=== PATIENT | male | born 1960 | race Caucasian/White ===

== ENCOUNTER 2017-09-11 09:34 | Emergency (ER) | payer OTHER, BC ==
[2017-09-11] MEDS: KETOROLAC 60 MG/2 ML VIAL (J1885) IM (10:30)
== END 2017-09-11 11:26 | disposition home or self-care (01) ==
LOC: M ED 09:34
DX: S43.402A Unspecified sprain of left shoulder joint, initial encounter (principal); X50.9XXA Other and unspecified overexertion or strenuous movements or postures, initial encounter; Y92.9 Unspecified place or not applicable; Y93.89 Activity, other specified; Y99.0 Civilian activity done for income or pay; M25.712 Osteophyte, left shoulder; Z79.82 Long term (current) use of aspirin; Z79.899 Other long term (current) drug therapy
CPT/HCPCS: J1885

== ENCOUNTER 2017-09-20 06:09 | Emergency (ER) | payer BC, OTHER ==
[2017-09-20 08:16] LABS: HEMATOCRIT 43.2 % (42.0-52.0); HEMOGLOBIN 15.1 g/dl (14.0-18.0); MEAN CORPUSCULAR HEMOGLOBIN 30.3 pg (27.0-33.0); MEAN CORPUSCULAR VOLUME 86.6 fl (80.0-96.0); PLATELET COUNT, AUTOMATED 217 10^3/uL (150-450); RED BLOOD COUNT 4.99 10^6/uL (4.30-6.10); RED CELL DISTRIBUTION WIDTH 12.8 % (11.5-14.5); WHITE BLOOD COUNT 7.4 10^3/uL (4.0-10.0)
[2017-09-20 08:38] LABS: INFLUENZA A AMPLIFICATION NEGATIVE (NEGATIVE); INFLUENZA B AMPLIFICATION POSITIVE (NEGATIVE)
[2017-09-20] MEDS: IBUPROFEN 400 MG TAB PO (08:49)
== END 2017-09-20 08:59 | disposition home or self-care (01) ==
LOC: M ED 06:09
DX: J10.1 Influenza due to other identified influenza virus with other respiratory manifestations (principal); I10 Essential (primary) hypertension; Z79.899 Other long term (current) drug therapy; Z79.82 Long term (current) use of aspirin
CPT/HCPCS: 85027

== ENCOUNTER → 2018-10-04 | Outpatient (REF) | payer BC ==
[~2018-10-04] MED LIST: /PANT40TA PO; /ROPI5TA PO; ALBU17IN INH; ASPI1TAB PO; ASPI81TA85 PO; AUGM875T28 PO; AZEL0.1S; AZEL0.1S3; LOSA100T50 PO; LUNE3TAB PO; LUNE3TAB36 PO; META0.52 PO; OSEL75CA PO; OSEL75CA2 PO; PROT1TAB2 PO; ROPI1TAB PO; VITMTA PO; ZOCO20TA PO
[2018-10-04 22:19] LABS: INFLUENZA A AMPLIFICATION NEGATIVE (NEGATIVE); INFLUENZA B AMPLIFICATION NEGATIVE (NEGATIVE)
== END ==
LOC: M LAB REF 11:26
PROVIDERS: ATTEND Nurse Practitioner Family
DX: J11.1 Influenza due to unidentified influenza virus with other respiratory manifestations (principal)

== ENCOUNTER 2018-10-23 10:54 | Day surgery (SDC) | payer BC ==
[~2018-10-23] VITALS: Ht 172.7 cm; Wt 99.8 kg
[~2018-10-23 10:54] MED LIST changes: +ASTE0.15; +NS 1,000 ML IV ONE; +VENTAER INH
[2018-10-23] MEDS ORDERED: SUCR1SUS PO (11:11)
[2018-10-23] MEDS ORDERED: PROPOFOL 200 MG/20 ML VIAL As Ordered ONE (11:16)
[2018-10-23] MEDS ORDERED: LIDOCAINE 2% INJ 100 MG/5 ML SDV (FOR ANES.) As Ordered ONE (11:17)
--- NOTE | 2018-10-23 12:09 | ROOR ---
Patient Name: Clayton Fernandez Procedure Date: 10/23/2018 11:43 AM Date of : 1960 Age: 58 Room: [facility] Gender: Male Note Status: Finalized Procedure: Upper GI endoscopy Indications: Suspected esophageal reflux Providers: Nestor Buck Jr, MD Referring MD: VERENICE JOHNS JR, MD Requesting Provider: Medicines: Propofol per Anesthesia Complications: No immediate complications. Procedure: Pre-Anesthesia Assessment: - Prior to the procedure, a History and Physical was performed, and patient medications and allergies were reviewed. The patient is competent. The risks and benefits of the procedure and the sedation options and risks were discussed with the patient. All questions were answered and informed consent was obtained. Patient identification and proposed procedure were verified by the physician and the nurse in the pre-procedure area and in the procedure room. Mental Status Examination: alert and oriented. Airway Examination: normal oropharyngeal airway and neck mobility. Respiratory Examination: clear to auscultation. CV Examination: normal. ASA Grade Assessment: II - A patient with mild systemic disease. After reviewing the risks and benefits, the patient was deemed in satisfactory condition to undergo the procedure. The anesthesia plan was to use moderate sedation / analgesia (conscious sedation). Immediately prior to administration of medications, the patient was re-assessed for adequacy to receive sedatives. The heart rate, respiratory rate, oxygen saturations, blood pressure, adequacy of pulmonary ventilation, and response to care were monitored throughout the procedure. The physical status of the patient was re-assessed after the procedure. The Endoscope was introduced through the mouth, and advanced to the second part of duodenum. The upper GI endoscopy was accomplished without difficulty. The patient tolerated the procedure well. Findings: The upper third of the esophagus, middle third of the esophagus and lower third of the esophagus were normal. A small hiatal hernia was present. Two tongues of salmon-colored mucosa were present. Biopsies were taken with a cold forceps for histology. Localized moderate inflammation characterized by congestion (edema), erythema, friability and granularity was found in the prepyloric region of the stomach. Biopsies were taken with a cold forceps for histology. The cardia, gastric fundus, gastric body, gastric antrum and pylorus were normal. The duodenal bulb, first portion of the duodenum and second portion of the duodenum were normal. Impression: - Normal upper third of esophagus, middle third of esophagus and lower third of esophagus. - Small hiatal hernia. 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 Biopsied. - Gastritis. Biopsied. - Normal cardia, gastric fundus, gastric body, antrum and pylorus. - Normal duodenal bulb, first portion of the duodenum and second portion of the duodenum. Recommendation: - Discharge patient to home (ambulatory). - Telephone my office for pathology results in 1 week. Nestor Buck MD Nestor Buck Jr, MD 10/23/2018 12:08:51 PM This report has been signed electronically. Number of Addenda: 0 Note Initiated On: 10/23/2018 11:43 AM Estimated Blood Loss: Estimated blood loss: none.
[2018-10-23 12:25] VITALS: BP 142/73
== END 2018-10-23 12:37 | disposition home or self-care (01) ==
LOC: M OPP 10:54
PROVIDERS: ATTEND Surgery
DX: K22.8 Other specified diseases of esophagus (principal); K44.9 Diaphragmatic hernia without obstruction or gangrene; K29.70 Gastritis, unspecified, without bleeding; G47.30 Sleep apnea, unspecified; Z79.82 Long term (current) use of aspirin; Z79.899 Other long term (current) drug therapy; Z87.891 Personal history of nicotine dependence

== ENCOUNTER → 2019-06-02 | Outpatient (REF) | payer BC ==
[~2019-06-02] MED LIST changes: -/PANT40TA PO; -/ROPI5TA PO; -ASPI1TAB PO; +ASPI81TA26 PO; -NS 1,000 ML IV ONE; +REQU1TAB15 PO; +SUCR1SUS PO
[2019-06-03 14:07] LABS: PSA TOTAL 3.9 ng/mL (0.0-4.0)
== END ==
LOC: M LAB REF 12:55
PROVIDERS: ATTEND Internal Medicine
DX: R97.20 Elevated prostate specific antigen [PSA] (principal)

== ENCOUNTER → 2021-11-17 | Outpatient (CLI) | payer BC ==
[~2021-11-17] MED LIST changes: +LOSA100T45 PO; -LOSA100T50 PO; -ROPI1TAB PO; +ROPI1TAB3 PO; +SUCR1ORA PO; -SUCR1SUS PO
[2021-11-17 12:27] LABS: BASO # 0.1 10^3/uL (0.0-0.2); BASO % 0.4 % (0.0-1.0); EOS # 0.1 10^3/uL (0.0-0.5); EOS % 0.7 % (0.0-3.0); HEMATOCRIT 46.1 % (42.0-52.0); HEMOGLOBIN 15.8 g/dl (13.5-17.5); LYMPH # 1.3 10^3/uL (1.5-5.0); LYMPH % 8.7 % (24.0-44.0); MEAN CORPUSCULAR HEMOGLOBIN 30.4 pg (27.0-33.0); MEAN CORPUSCULAR HGB CONC 34.3 g/dl (32.0-36.5); MEAN CORPUSCULAR VOLUME 88.8 fl (80.0-96.0); MONO # 0.9 10^3/uL (0.0-0.8); MONO % 6.4 % (2.0-8.0); NEUTROPHILS # 12.3 10^3/uL (1.5-8.5); NEUTROPHILS % 83.4 % (36.0-66.0); PLATELET COUNT, AUTOMATED 298 10^3/uL (150-450); RED BLOOD COUNT 5.19 10^6/uL (4.30-6.10); WHITE BLOOD COUNT 14.8 10^3/uL (4.0-10.0)
[2021-11-17 12:55] LABS: ALBUMIN 3.7 GM/DL (3.2-5.2); ALT/SGPT 45 U/L (12-78); BLOOD UREA NITROGEN 15 MG/DL (7-18); CALCIUM LEVEL 8.7 MG/DL (8.8-10.2); CARBON DIOXIDE LEVEL 26 MEQ/L (21-32); CHLORIDE LEVEL 110 MEQ/L (98-107); CREATININE FOR GFR 0.86 MG/DL (0.70-1.30); GLOMERULAR FILTRATION RATE > 60.0 (>49); GLUCOSE, FASTING 102 MG/DL (70-100); LIPASE 77 U/L (73-393); POTASSIUM SERUM 4.4 MEQ/L (3.5-5.1); SODIUM LEVEL 140 MEQ/L (136-145); TOTAL PROTEIN 7.2 GM/DL (6.4-8.2)
== END ==
LOC: M WUC 09:11
DX: R10.11 Right upper quadrant pain (principal)

== ENCOUNTER → 2022-03-16 | Outpatient (CLI) | payer BC ==
[~2022-03-16] MED LIST changes: +SIMV-253 PO
== END ==
LOC: M PLALAB 09:51
PROVIDERS: ATTEND Physician Assistant
DX: R97.20 Elevated prostate specific antigen [PSA] (principal)

== ENCOUNTER → 2022-04-13 | Outpatient (REF) | payer BC | LOC: M SMT 13:01 | PROVIDERS: ATTEND Urology | DX: R97.20 Elevated prostate specific antigen [PSA] (principal) ==

== ENCOUNTER 2022-12-17 19:56 | Emergency (ER) | payer BC ==
[~2022-12-17 19:56] MED LIST changes: -LOSA100T45 PO; +LOSA100T46 PO
[2022-12-17] MEDS ORDERED: ceFAZolin SOD 2 GM in IV 1 EA IV ONE (21:00)
[2022-12-17] MEDS ORDERED: LIDOCAINE 1% MDV 20ML VIAL SC ONE (21:00)
[2022-12-17] MEDS ORDERED: BOOSTRIX VACCINE (TETANUS/DIPHTH/ACEL. PERTUSSIS) 0.5ML SYR IM ONE (21:00)
[2022-12-17 21:11] LABS: BASO # 0.1 10^3/uL (0.0-0.2); BASO % 0.5 % (0.0-1.0); EOS # 0.2 10^3/uL (0.0-0.5); EOS % 1.6 % (0.0-3.0); HEMATOCRIT 45.1 % (42.0-52.0); HEMOGLOBIN 15.6 g/dl (13.5-17.5); LYMPH # 1.5 10^3/uL (1.5-5.0); LYMPH % 14.1 % (24.0-44.0); MEAN CORPUSCULAR HEMOGLOBIN 31.4 pg (27.0-33.0); MEAN CORPUSCULAR HGB CONC 34.6 g/dl (32.0-36.5); MEAN CORPUSCULAR VOLUME 90.7 fl (80.0-96.0); MONO # 0.8 10^3/uL (0.0-0.8); MONO % 7.6 % (2.0-8.0); NEUTROPHILS # 7.9 10^3/uL (1.5-8.5); NEUTROPHILS % 75.8 % (36.0-66.0); PLATELET COUNT, AUTOMATED 217 10^3/uL (150-450); RED BLOOD COUNT 4.97 10^6/uL (4.30-6.10); WHITE BLOOD COUNT 10.4 10^3/uL (4.0-10.0)
[2022-12-17 21:35] LABS: BLOOD UREA NITROGEN 18 MG/DL (9-23); CALCIUM LEVEL 8.6 MG/DL (8.3-10.6); CARBON DIOXIDE LEVEL 25 MMOL/L (20-31); CHLORIDE LEVEL 109 MMOL/L (98-107); GLOMERULAR FILTRATION RATE > 60.0 (>49); GLUCOSE, FASTING 89 MG/DL (74-106); POTASSIUM SERUM 4.5 MMOL/L (3.5-5.1); SODIUM LEVEL 141 MMOL/L (136-145)
[2022-12-17 21:56] VITALS: BP 186/89
[2022-12-17] MEDS ORDERED: KETOROLAC 30 MG/ML 1ML VIAL IV ONE (22:10)
[2022-12-17] MEDS ORDERED: ACETAMINOPHEN TAB 650MG DOSE (2X325MG) PO ONE (22:10)
[2022-12-17] MEDS ORDERED: PERC5TAB12 PO (22:54)
[2022-12-17] MEDS ORDERED: CEPH500C PO (22:54)
[2022-12-17] MEDS ORDERED: OXYCODONE/APAP 5MG/325MG(HOME DOSE PACK) PO ONE (22:55)
== END 2022-12-17 23:21 | disposition home or self-care (01) ==
LOC: M ED 19:56
DX: S62.630B Displaced fracture of distal phalanx of right index finger, initial encounter for open fracture (principal); W23.1XXA Caught, crushed, jammed, or pinched between stationary objects, initial encounter; Y99.0 Civilian activity done for income or pay
CPT/HCPCS: 13131; 73130; 80047; 80048; 85025; 87635; 90471; 90715; 96365; 96375; 99284; J0690; J1885

== ENCOUNTER 2022-12-18 15:08 | Day surgery (SDC) | payer BC ==
[~2022-12-18] VITALS: Ht 172.7 cm; Wt 102.5 kg
[~2022-12-18 15:08] MED LIST changes: +CEPH500C PO; +PERC5TAB12 PO
[2022-12-18] MEDS ORDERED: ceFAZolin SOD 2 GM in IV 1 EA IV ONE (16:00)
[2022-12-18] MEDS ORDERED: BUPIVACAINE HCL 0.25% 30ML VIAL As Ordered ONE (17:46)
[2022-12-18] MEDS ORDERED: fentaNYL 250 MCG/5 ML INJECTION As Ordered ONE (18:32)
[2022-12-18] MEDS ORDERED: ONDANSETRON 4MG 2ML VIAL As Ordered ONE (18:32)
[2022-12-18] MEDS ORDERED: propofoL 200 MG/20 ML VIAL As Ordered ONE (18:32)
[2022-12-18] MEDS ORDERED: ACETAMINOPHEN 1000MG 100ML IV BAG As Ordered ONE (18:32)
[2022-12-18] MEDS ORDERED: KETOROLAC 60MG 2ML VIAL As Ordered ONE (18:32)
[2022-12-18] MEDS ORDERED: LIDOCAINE 2% 100MG/5ML SDV (FOR ANES.) As Ordered ONE (18:32)
[2022-12-18] MEDS ORDERED: MIDAZOLAM INJ 2MG/2ML VIAL As Ordered ONE (18:32)
[2022-12-18] MEDS ORDERED: ePHEDrine SULFATE 25 MG/5 ML(5MG/ML) SYRINGE As Ordered ONE ×2 (18:32→18:41)
[2022-12-18] MEDS ORDERED: PHENYLephrine 500MCG 5ML (100MCG/ML) SYRINGE As Ordered ONE (18:41)
[2022-12-18] MEDS ORDERED: ONDANSETRON 4MG 2ML VIAL IV PRN (19:15)
[2022-12-18] MEDS ORDERED: fentaNYL 100 MCG/2 ML INJECTION IV PRN (19:15)
[2022-12-18] MEDS ORDERED: oxyCODONE 5MG TAB PO PRN (19:15)
[2022-12-18] MEDS ORDERED: MORPHINE 2 MG/ML 1ML VIAL IV PRN (19:15)
[2022-12-18 20:17] VITALS: BP 142/67
== END 2022-12-18 20:26 | disposition home or self-care (01) ==
LOC: M SDC 15:08
PROVIDERS: ATTEND Orthopaedic Surgery Hand Surgery
DX: S68.120A Partial traumatic metacarpophalangeal amputation of right index finger, initial encounter (principal); W23.1XXA Caught, crushed, jammed, or pinched between stationary objects, initial encounter; Y92.89 Other specified places as the place of occurrence of the external cause; J45.909 Unspecified asthma, uncomplicated; G47.33 Obstructive sleep apnea (adult) (pediatric); M54.9 Dorsalgia, unspecified; M19.90 Unspecified osteoarthritis, unspecified site; Z79.899 Other long term (current) drug therapy; Z79.82 Long term (current) use of aspirin
CPT/HCPCS: 26951; 76000; J0131; J0690; J1100; J1885; J2250; J2370; J2405; J3010; S0020

== ENCOUNTER → 2022-12-21 | Outpatient (CLI) | payer BC | LOC: M SOG 09:10 | PROVIDERS: ATTEND Physician Assistant | DX: S62.630B Displaced fracture of distal phalanx of right index finger, initial encounter for open fracture (principal) ==

== ENCOUNTER → 2023-01-08 | Outpatient (CLI) | payer BC | LOC: M SOG 08:04 | PROVIDERS: ATTEND Orthopaedic Surgery Hand Surgery | DX: S62.630D Displaced fracture of distal phalanx of right index finger, subsequent encounter for fracture with routine healing (principal); W18.30XD Fall on same level, unspecified, subsequent encounter ==

== ENCOUNTER → 2023-01-29 | Outpatient (CLI) | payer BC | LOC: M SOG 08:41 | PROVIDERS: ATTEND Physician Assistant | DX: S62.630D Displaced fracture of distal phalanx of right index finger, subsequent encounter for fracture with routine healing (principal); W18.30XD Fall on same level, unspecified, subsequent encounter ==

== ENCOUNTER → 2023-02-19 | Outpatient (CLI) | payer BC ==
[~2023-02-19] MED LIST changes: -ROPI1TAB3 PO; +ROPI1TAB73 PO
== END ==
LOC: M SOG 08:07
PROVIDERS: ATTEND Physician Assistant
DX: S62.630D Displaced fracture of distal phalanx of right index finger, subsequent encounter for fracture with routine healing (principal); W18.30XD Fall on same level, unspecified, subsequent encounter

== ENCOUNTER → 2023-04-09 | Outpatient (REF) | payer BC, OTHER | LOC: M LAB REF 11:45 | PROVIDERS: ATTEND Internal Medicine | DX: R97.20 Elevated prostate specific antigen [PSA] (principal) ==

== ENCOUNTER → 2023-06-04 | Outpatient (CLI) | payer BC ==
[~2023-06-04] MED LIST changes: -LUNE3TAB36 PO; +LUNE3TAB50 PO
== END ==
LOC: M CARPUL 07:54
PROVIDERS: ATTEND Internal Medicine
DX: R06.00 Dyspnea, unspecified (principal)

== ENCOUNTER → 2023-06-09 | Outpatient (CLI) | payer BC | LOC: M RAD 14:27 | PROVIDERS: ATTEND Physician Assistant | DX: R05.9 Cough, unspecified (principal) ==

== ENCOUNTER → 2023-07-25 | Day surgery (SDC) | payer MEDICARE, BC ==
[~2023-07-25] VITALS: Ht 172.7 cm; Wt 105.1 kg
[~2023-07-25] MED LIST changes: +AZEL0.055 NARES; +HYDR12.55 PO; +LIDOCAINE 2% 100MG/5ML SDV (FOR ANES.) As Ordered ONE; +ePHEDrine SULFATE 25 MG/5 ML(5MG/ML) SYRINGE As Ordered ONE; +fentaNYL 100 MCG/2 ML INJECTION As Ordered ONE; +propofoL 500 MG/50 ML VIAL As Ordered ONE
[2023-07-25 12:37] VITALS: BP 112/57; TEMP 97.1; O2SAT 95
== END | disposition home or self-care (01) ==
LOC: M OPP 10:30
PROVIDERS: ATTEND Surgery
DX: Z12.11 Encounter for screening for malignant neoplasm of colon (principal); Z86.010 Personal history of colon polyps; K57.30 Diverticulosis of large intestine without perforation or abscess without bleeding; K22.70 Barrett's esophagus without dysplasia; K31.89 Other diseases of stomach and duodenum; K31.A19 Gastric intestinal metaplasia without dysplasia, unspecified site; G47.30 Sleep apnea, unspecified; Z99.89 Dependence on other enabling machines and devices; Z79.02 Long term (current) use of antithrombotics/antiplatelets; Z79.51 Long term (current) use of inhaled steroids; Z79.82 Long term (current) use of aspirin; Z79.891 Long term (current) use of opiate analgesic; Z79.899 Other long term (current) drug therapy
CPT/HCPCS: 43239; 88305; G0105; J3010

== ENCOUNTER → 2023-08-20 | Outpatient (CLI) | payer MEDICARE ==
[~2023-08-20] MED LIST changes: -LIDOCAINE 2% 100MG/5ML SDV (FOR ANES.) As Ordered ONE; -ePHEDrine SULFATE 25 MG/5 ML(5MG/ML) SYRINGE As Ordered ONE; -fentaNYL 100 MCG/2 ML INJECTION As Ordered ONE; -propofoL 500 MG/50 ML VIAL As Ordered ONE
== END ==
LOC: M SLEEP 20:00
PROVIDERS: ATTEND Nurse Practitioner Adult Health
DX: G47.33 Obstructive sleep apnea (adult) (pediatric) (principal)

== ENCOUNTER → 2024-04-24 | Outpatient (REF) | payer MEDICARE ==
[~2024-04-24] MED LIST changes: -AZEL0.055 NARES; +AZEL1SPR4 NARES
[2024-04-24 13:41] LABS: APPEARANCE, URINE CLEAR (CLEAR); BACTERIA, URINE AUTO NEGATIVE (NEGATIVE); BILIRUBIN, URINE AUTO NEGATIVE (NEGATIVE); BLOOD, URINE BLOOD NEGATIVE (NEGATIVE); COLOR, URINE YELLOW (YELLOW); GLUCOSE, URINE (UA) AUTO NEGATIVE (NEGATIVE); KETONE, URINE AUTO NEGATIVE (NEGATIVE); LEUKOCYTE ESTERASE, URINE AUTO NEGATIVE (NEGATIVE); MUCUS, URINE SMALL (NEGATIVE); NITRITE, URINE AUTO NEGATIVE (NEGATIVE); PROTEIN, URINE AUTO NEGATIVE (NEGATIVE); RBC, URINE AUTO 0 /HPF (0-3); SPECIFIC GRAVITY URINE AUTO 1.012 (1.002-1.035); SQUAMOUS EPITHELIAL CELL UR AU 0 /HPF (0-6); UROBILINOGEN, URINE AUTO 0.2 mg/dL (0.0-2.0); WBC, URINE AUTO 0 /HPF (0-3)
== END ==
LOC: M SMT 12:45
PROVIDERS: ATTEND Urology
DX: N40.0 Benign prostatic hyperplasia without lower urinary tract symptoms (principal)
CPT/HCPCS: 81001; 87086; G0463

== ENCOUNTER 2024-10-25 12:59 | Emergency (ER) | payer MEDICARE ==
[~2024-10-25] VITALS: Ht 172.7 cm; Wt 114.4 kg
[2024-10-25 13:04] VITALS: TEMP 98.5
[2024-10-25] MEDS ORDERED: BACL10TA2 (13:24)
[2024-10-25] MEDS ORDERED: MELO15TA28 (13:24)
[2024-10-25] MEDS ORDERED: HYDR26CR TOP (13:25)
[2024-10-25 15:58] VITALS: BP 145/70; O2SAT 96
== END 2024-10-25 16:36 | disposition home or self-care (01) ==
LOC: M ED 12:59
DX: K64.8 Other hemorrhoids (principal); Z79.1 Long term (current) use of non-steroidal anti-inflammatories (NSAID); Z79.2 Long term (current) use of antibiotics; Z79.51 Long term (current) use of inhaled steroids; Z79.899 Other long term (current) drug therapy; Z79.810 Long term (current) use of selective estrogen receptor modulators (SERMs)

== ENCOUNTER → 2024-12-07 | Outpatient (CLI) | payer MEDICARE ==
[~2024-12-07] MED LIST changes: +BACL10TA2; +HYDR26CR TOP; +MELO15TA28
[2024-12-08 10:08] LABS: PSA FREE 2.5 ng/mL; PSA TOTAL 8.4 ng/mL (< OR = 4.0)
== END ==
LOC: M PLALAB 12:00
PROVIDERS: ATTEND Urology
DX: R97.20 Elevated prostate specific antigen [PSA] (principal)

== ENCOUNTER → 2024-12-29 | Outpatient (CLI) | payer MEDICARE | LOC: M CARPUL 11:02 | PROVIDERS: ATTEND Internal Medicine | DX: I35.1 Nonrheumatic aortic (valve) insufficiency (principal); I87.2 Venous insufficiency (chronic) (peripheral); Q23.1 Congenital insufficiency of aortic valve ==

== ENCOUNTER → 2025-06-14 | Outpatient (CLI) | payer MEDICARE | LOC: M SOG 08:26 | PROVIDERS: ATTEND Neuromusculoskeletal Medicine, Sports Medicine | DX: M17.0 Bilateral primary osteoarthritis of knee (principal) ==

== ENCOUNTER → 2025-06-15 | Outpatient (CLI) | payer MEDICARE ==
[2025-06-17 11:44] LABS: PSA % FREE 20.0 % (calc) (>25); PSA FREE 1.2 ng/mL; PSA TOTAL 6.0 ng/mL (< OR = 4.0)
== END ==
LOC: M PLALAB 15:11
PROVIDERS: ATTEND Urology
DX: R97.20 Elevated prostate specific antigen [PSA] (principal)